=== PATIENT | male | born 1970 | race Caucasian/White ===

== ENCOUNTER 2016-09-19 15:26 | Emergency (ER) | payer OTHER ==
[~2016-09-19 15:26] MED LIST: ACETAMINOPHEN PO; BACTROBAN22 GM TP; CIPRO; CIPRO PO; DICLOFENAC PO; FLEXERIL PO; FLEXERIL10 M1 PO; FLEXERIL10 MG PO; HYDROCHLOROTHIA25 MG PO; HYDROCODON-ACE1 EAC7 PO; KCL PO; KEFLEX500 M2 PO; KLONOPIN1 MG PO; LEVAQUIN PO; LIDODERM30 EA TOP; LISINOPRIL PO; LISINOPRIL1 GM; LORTAB 10-5001 EACH PO; LORTAB 5-325 M1 EACH PO; LORTAB 5/500 TA1 TA1 PO; NAPROSYN-EC500 M1 PO; NORCO 10/3251 TAB PO; NORCO1 TAB 10/3; NORVASC PO; ROBAXIN; ROBAXIN500 MG PO; SYMBICORT INH; TYLENOL #3 PO; VOLTAREN75 MG PO; ZOLOFT PO; ZOLOFT100 MG PO
[2016-09-19] MEDS ORDERED: PROTONIX PO (15:37)
[2016-09-19] MEDS ORDERED: CATAPRES0.1 MG PO (15:37)
[2016-09-20] MEDS ORDERED: SEROQUEL100 MG PO (07:16)
[2016-09-20] MEDS ORDERED: INDERAL XL80 MG PO (07:17)
[2016-09-20] MEDS ORDERED: FERRO-TIME325 MG PO (07:17)
[2016-09-20] MEDS ORDERED: HYDROCODON-ACE1 EAC7 PO (17:39)
== END 2016-09-19 18:16 | disposition left against medical advice (07) ==
LOC: SED 15:26
DX: Z53.21 Procedure and treatment not carried out due to patient leaving prior to being seen by health care provider (principal)

== ENCOUNTER 2016-09-19 17:56 | Observation (INO) | payer OTHER ==
--- NOTE | ~2016-09-19 | OR ---
Unit #: [id number] #: [id number] Patient: DINH CHANEY [id number] [address] [place], [place] [address] [id number] Ronaldo MR#: [id number] NAME: DINH CHANEY. ROOM: 228 Date of Procedure: 09/20/2016 Admission Date: 09/19/2016 Surgeon: Andrew Salas M.D. : 1970 Attending Physician: Shadi Garzon M.D. Primary Care Physician: Emmett Smith M.D. OPERATIVE REPORT PREOPERATIVE DIAGNOSES Right ureteral and renal calculi. POSTOPERATIVE DIAGNOSES Right ureteral and renal calculi. PROCEDURES PERFORMED Right ureteroscopy, laser lithotripsy (no stent). ANESTHESIA General with local supplementation. INDICATIONS FOR PROCEDURE This 46-year-old man with a long stone history, has two 7 mm stones obstructing the proximal right ureter. He has multiple right intrarenal stones as well as left intrarenal stones. DESCRIPTION OF PROCEDURE The patient was given preoperative antibiotics and satisfactory general anesthesia. In the dorsal lithotomy position, routine prep and drape were performed. The 21-Paraguayan rigid cystoscope was introduced with a 30-degree lens and video noting a normal anterior urethra and mild bilobar BPH. The bladder was healthy when examined. The right ureteral orifice was larger than normal indicative of his stone history. I placed a Sensor guidewire, easily past the obstructing stones. Then a rigid ureteroscope easily alongside the guidewire without any active dilation. The stones were hard and very irregular. I used a 365 nanometer laser fiber at settings of 10 and 1.0 to break the 2 stones in the ureter. There was, I believe, a third stone that had come down also and this was treated. After clearing the ureter with the basket and irrigation, I then placed a second guidewire and advanced a flexible ureteroscope up into the kidney and examined all calices. I treated significant upper pole stone burden with the same laser fiber at settings of 10 and 0.8. I treated the 2 other calyceal stones until they became disattached. In the lower pole, there was only a cluster of debris too small to basket and small enough to pass. Leaving no significant fragments and pulling back slowly, I determined there was no need for ureteral stent, so all devices were removed. A Uro-jet was applied. The patient's stones are submitted for chemical analysis. The patient will be discharged postvoid if alert and comfortable. Follow up in 1 month with a renal ultrasound and KUB. Unit #: [id number] #: [id number] Patient: DINH CHANEY Dictated by... Junie Lei/renetta TD: 09/21/2016 06:30 JOB #: [id number] OPERATIVE REPORT Page 1 of 1 X Andrew Salas MD X PROCEDURE OPERATIVE NOTE
--- NOTE | ~2016-09-19 | HP ---
Unit #: [id number] #: [id number] Patient: DINH CHANEY [id number] [address] [address] [id number] I MR#: [id number] NAME: DINH CHANEY. ROOM: 228 Age: Sex: M Admission Date: 09/19/2016 : 1970 Attending Physician: Shadi Garzon M.D. Primary Care Physician: Emmett Smith M.D. HISTORY AND PHYSICAL CHIEF COMPLAINT Right flank pain. HISTORY OF PRESENT ILLNESS This 46-year-old man has a long history of multiple stones and presented to the emergency department last night with right flank pain. He was diagnosed with two 7 mm stones obstructing the right upper ureter with hydronephrosis. There are numerous bilateral renal stones also. His pain persists despite medication, and he requests definitive therapy. He is familiar with the risks and complications of ureteroscopy. He ordinarily has no voiding difficulties. He has had intermittent gross hematuria associated with the stones. He has no history of urinary infection. PAST MEDICAL HISTORY 1. Chronic pain. 2. Hypertension. 3. Depression. PAST SURGICAL HISTORY 1. Right knee x3. 2. Hiatal hernia. 3. Kidney stones with ureteroscopy and ESWL. HOME MEDICATIONS 1. Zoloft. 2. Norvasc. 3. [place]. 4. Methocarbamol. 5. Symbicort. 6. Potassium. 7. Hydrochlorothiazide. 8. Catapres. 9. Protonix. ALLERGIES None known. FAMILY HISTORY Negative for prostate cancer. SOCIAL HISTORY Unit #: [id number] #: [id number] Patient: DINH CHANEY Active smoker. REVIEW OF SYSTEMS Includes the above. Pain controlled through Pain Management. PHYSICAL EXAMINATION GENERAL: Patient is obviously in pain in the holding area but alert and oriented. VITAL SIGNS: Afebrile with stable vital signs. Temperature 97.5 degrees, pulse 55, blood pressure 109/71, and respirations 16. Height 5 feet 10 inches, weight 190 pounds. HEENT: Unremarkable. LUNGS: Clear. CARDIAC: Rate and rhythm regular. ABDOMEN: Normal build, soft, tender right side, right flank, and right groin. GENITALIA: Phallus normal circumcised. Normal meatus. Testes and epididymis normal descended. Digital deferred. EXTREMITIES: No edema. NEUROLOGIC: Intact. DIAGNOSTIC STUDIES LABORATORY: Urinalysis with 3+ blood, no nitrites, and 1+ leukocyte esterase, with enumerable RBCs, 5-10 WBCs, and 1+ bacteria. BUN 12 and creatinine 0.8. Liver function tests are normal. WBC 7.6 and hemoglobin 14.6. IMAGING: CT scan as noted above. IMPRESSION Obstructing proximal right ureteral stones and intrarenal calculi. PLAN Will proceed with right ureteroscopy, laser lithotripsy, and stent placement. Dictated by Andrew Salas M.D. VINCENZO/ancelmo TD: 09/20/2016 19:41 JOB #: [id number] HISTORY AND PHYSICAL Page 1 of 1 X Andrew Salas MD X HISTORY AND PHYSICAL
--- NOTE | ~2016-09-19 | CT4 ---
[facility] A Service of [facility] RADIOLOGY TEXT RESULTS PATIENT: DINH CHANEY LOCATION: [facility] 228-01 : [birth year] UNIT #: [id number] AGE: [address]: Shadi Garzon MD SEX: M ORDER DR: [id number] [facility] [address] [facility] [place], [place] [address] [id number] I MR#: [id number] Acc #: [id number] NAME: DINH CHANEY. : 1970 SEX: M STUDY DATE/TIME: 09/19/2016 20:27 UNIT: [id number] PCU ROOM: 301 STUDY DESCRIPTION: CT Abd and Pelv Wo Cont Attending Physician: Shadi Garzon M.D. Ordering Physician: Blayne Catherine D.O. Primary Care Physician: Emmett Smith M.D. MEDICAL IMAGING REPORT This report is preliminary unless electronic signature is present EXAM CT abdomen and pelvis without contrast HISTORY Right-sided flank pain radiating into scrotum. History of kidney stones, blood in urine x2 days. COMPARISON CT abdomen and pelvis 08/17/[address] exam was performed with one or more of the following radiation dose reduction techniques: automatic exposure control, adjustment of mA and/or kV according to patient size, and iterative reconstruction. FINDINGS Axial images performed through the abdomen and pelvis without contrast. Multiplanar reconstructed images reviewed a workstation. ABDOMEN: Lung bases remarkable for old right-sided rib fracture with incomplete union. Liver, spleen, gallbladder, pancreas and adrenal glands unremarkable. There is a large exophytic cyst left kidney. Both kidneys demonstrate too numerous to count bilateral intrarenal stones. There is moderate right-sided hydronephrosis and hydroureter with multiple stones within the right ureter. There are estimated to be at least five stones within the right ureter, most of these measuring about 6 mm and the largest measuring close to 7 mm. These extend to about the mid ureteral level just above the pelvic brim. Visualized GI tract unremarkable. PELVIS: Bladder and prostate appear normal with the exception of some small prostatic calcifications. Osseous structures and soft tissues [facility] A Service of [facility] RADIOLOGY TEXT RESULTS PATIENT: DINH CHANEY LOCATION: [facility] 228-01 : [birth year] UNIT #: [id number] AGE: [address]: Shadi Garzon MD SEX: M ORDER DR: unremarkable. IMPRESSION 1. Moderate right-sided hydronephrosis and hydroureter with multiple right-sided ureteral stones numbering at least five and the largest measuring up to 7 mm. These extend all of the way down to the level of the pelvic brim and findings are compatible with acute obstruction. 2. Too numerous to count intrarenal stones bilaterally, right greater than left. Dictated by... Sherri Pina M.D. THIS IS AN ELECTRONICALLY VERIFIED REPORT Sherri Pina M.D. at 09/20/2016 2:49 PM ELISA/corey TD: 09/20/2016 03:02 JOB #: [id number] MEDICAL IMAGING REPORT Page 1 of 1 COPY
[~2016-09-19 17:56] MED LIST changes: +CATAPRES0.1 MG PO; +PROTONIX PO
[2016-09-19 20:16] LABS: BASOPHIL% 0.5 % (0-2.5); EOSINOPHIL# 0.2 X10e3 (0-0.7); HEMATOCRIT 42.6 % (38.0-50.0); HEMOGLOBIN 14.6 gm/dL (13.0-16.0); LYMPHOCYTE% 25.9 % (17.0-45.0); MEAN CELL VOLUME 91.7 FL (83-96); MEAN CORPUSCULAR HEMOGLOBIN 31.5 PG (28-34); MEAN CORPUSCULAR HGB CONC 34.3 g/dL (30-36); MEAN PLATELET VOLUME 9.8 FL (6.5-11.5); MONOCYTE# 0.5 X10e3 (0-1.0); MONOCYTE% 6.7 % (3.0-12.0); NEUTROPHIL# 4.9 X10e3 (1.5-7.1); NEUTROPHIL% 64.9 % (40-75); PLATELET COUNT 180 X10e3 (140-420); RED BLOOD COUNT 4.65 X10e (3.90-5.60); RED CELL DISTRIBUTION WIDTH 13.1 % (11.0-15.5); WHITE BLOOD COUNT 7.6 X10e3 (4.0-10.5)
[2016-09-19 20:17] LABS: DIFF IND NO
[2016-09-19 20:31] LABS: URINE SOURCE CLEAN CATCH
[2016-09-19 20:39] LABS: ALBUMIN SERUM 3.6 g/dL (3.5-5.0); ALKALINE PHOSPHATASE 52 U/L (32-92); ALT (SGPT) 10 U/L (10-40); AST (SGOT) 13 U/L (10-42); BILIRUBIN, DIRECT <0.1 mg/dL (0.0-0.2); BILIRUBIN,INDIRECT 0.3 mg/dL (0.0-0.9); BILIRUBIN,TOTAL 0.4 mg/dL (0.2-2.0); BLOOD UREA NITROGEN 12 mg/dL (9-23); CALCIUM SERUM 8.7 mg/dL (8.4-10.2); CARBON DIOXIDE 23 mmol/L (22-31); CHLORIDE 103 mmol/L (100-111); CREATININE SERUM 0.8 mg/dL (0.6-1.4); GLOM FILT RATE Estimated 107.2 mL/min (>60); GLUCOSE FASTING 94 mg/dL (70-110); LIPASE 17 U/L (22-51); POTASSIUM 3.9 mmol/L (3.5-5.1); PROTEIN TOTAL SERUM 6.4 g/dL (6.0-8.3); SODIUM 135 mmol/L (135-145)
[2016-09-19 20:41] LABS: URINE APPEARANCE CLOUDY; URINE BILIRUBIN NEG (NEG); URINE BLOOD 3+ (NEG); URINE COLOR YELLOW; URINE GLUCOSE NEG (NEG); URINE KETONE NEG (NEG); URINE LEUKOCYTE ESTERASE 1+ (NEG); URINE NITRATE NEG (NEG); URINE PH 5.5 (5-8); URINE PROTEIN TRACE (NEG); URINE SPECIFIC GRAVITY 1.019 (1.003-1.035)
[2016-09-19 20:44] LABS: CULTURE INDICATED? YES; URBCS1 AUWI INNUM /[HPF] (0-2); URINE BACTERIA AUWI 2+ (NEGATIVE); URINE SQUAMOUS EPITHELIAL CELL NONE SEEN /[HPF]
[2016-09-20] MEDS ORDERED: SEROQUEL100 MG PO (07:16)
[2016-09-20] MEDS ORDERED: INDERAL XL80 MG PO (07:17)
[2016-09-20] MEDS ORDERED: FERRO-TIME325 MG PO (07:17)
[2016-09-20] MEDS ORDERED: HYDROCODON-ACE1 EAC7 PO (17:39)
== END 2016-09-20 17:57 | disposition home or self-care (01) ==
LOC: CED 17:56 → C2A 21:35 → CEDOF 21:35 → CED 21:52 → CEDOF 21:52 → C3A PCU 23:17 → C2A 09-20 07:44 → C3A PCU 09-20 07:44 → C2A 09-20 17:57
PROVIDERS: Emergency Medicine; Urology
DX: N13.2 Hydronephrosis with renal and ureteral calculous obstruction (principal); I10 Essential (primary) hypertension; J44.9 Chronic obstructive pulmonary disease, unspecified; G47.30 Sleep apnea, unspecified; F17.200 Nicotine dependence, unspecified, uncomplicated
CPT/HCPCS: 36415; 74176; 80048; 80076; 81003; 82365; 83690; 85025; 87086; 88300; 96361; 96374; 96375; 96376; 99285; C1758; G0378; J0690; J0696; J1885; J2250; J2270; J2405; J3010

== ENCOUNTER → 2016-10-23 | Outpatient (CLI) | payer OTHER ==
[~2016-10-23] MED LIST changes: +FERRO-TIME325 MG PO; +INDERAL XL80 MG PO; +SEROQUEL100 MG PO
--- NOTE | ~2016-10-23 | US77 ---
[facility] A Service of [facility] RADIOLOGY TEXT RESULTS PATIENT: DINH CHANEY LOCATION: [facility] : 70 UNIT #: [id number] AGE: [address]: Andrew Salas MD SEX: M ORDER DR: [id number] [facility] [address] [facility]. [place], [place] [address] [id number] O MR#: [id number] Acc #: [id number] NAME: DINH CHANEY. : 1970 SEX: M STUDY DATE/TIME: 10/23/2016 11:58 UNIT: CGUS ROOM: STUDY DESCRIPTION: US Kidney Bilateral Complete Attending Physician: Andrew Salas M.D. Referring Physician: Andrew Salas M.D. Ordering Physician: Andrew Salas M.D. Primary Care Physician: Maik Pena Aprn MEDICAL IMAGING REPORT This report is preliminary unless electronic signature is present EXAM Ultrasound bilateral, 10/23/2016 INDICATIONS 46-year-old male with history of renal stones. Apparent lithotripsy a month ago. Pain in the lower back, feels like he may be passing a stone. Hypertension. TECHNIQUE Sonographic imaging of the kidneys was performed bilaterally. COMPARISON STUDIES Correlation is made with CT 09/19/2016. FINDINGS The right kidney measures 11.3 cm long axis and the left 14 cm long axis. No hydronephrosis on either side. The patient's tiny stones, better demonstrated on the prior CT, are difficult to ascertain with ultrasound. However, there is no evidence of hydronephrosis of either kidney. Incidental left renal cyst measures up to 6.8 cm. The bladder is unremarkable. IMPRESSION 1. No hydronephrosis of either kidney. 2. Tiny non-obstructing stones bilaterally, better demonstrated on recent CT. 3. Dominant left renal cyst. 4. Bladder unremarkable. Dictated by... Tanner Kendall M.D. [facility] A Service [facility] RADIOLOGY TEXT RESULTS PATIENT: DINH CHANEY LOCATION: [facility] : 70 UNIT #: [id number] AGE: [address]: Andrew Salas MD SEX: M ORDER DR: THIS IS AN ELECTRONICALLY VERIFIED REPORT Tanner Kendall M.D. at 10/24/2016 7:09 AM NIKA/matias TD: 10/23/2016 21:05 JOB #: [id number] MEDICAL IMAGING REPORT Page 1 of 1 COPY
--- NOTE | ~2016-10-23 | CR7 ---
[facility] A Service of [facility] RADIOLOGY TEXT RESULTS PATIENT: DINH CHANEY LOCATION: [facility] : 70 UNIT #: [id number] AGE: [address]: Andrew Salas MD SEX: M ORDER DR: [id number] [facility] [address] [place], [place] [address] [id number] O MR#: [id number] Acc #: [id number] NAME: DINH CHANEY. : 1970 SEX: M STUDY DATE/TIME: 10/23/2016 11:40 UNIT: CGUS ROOM: STUDY DESCRIPTION: CR Abdomen Single AP View Attending Physician: Andrew Salas M.D. Referring Physician: Andrew Salas M.D. Ordering Physician: Andrew Salas M.D. Primary Care Physician: Maik Pena Aprn MEDICAL IMAGING REPORT This report is preliminary unless electronic signature is present EXAM Frontal abdomen 10/23/2016 INDICATIONS 46-year-old male with history of a kidney stone. Symptoms began a month ago. History of skin cancer. History of lithotripsy on the right a month ago. TECHNIQUE Frontal abdomen was performed. COMPARISON STUDIES CT 09/19/2016. FINDINGS There are bilateral renal stones. The largest stone on the left is in the noe-us-csxox pole measuring 7 mm. The largest stone or conglomeration of stones in the right kidney is in the ylf-lo-iwqes pole, also measuring up to 7 mm. There is a nonspecific calcification in the right mirta-pelvis that is favored to be vascular in nature, rather than a distal ureteral stone. Mild degenerative change in the lower lumbar spine. IMPRESSION 1. There are bilateral renal stones. These measure up to 7 mm, as described. 2. Probable vascular calcification in the right mirta-pelvis. Dictated by... Tanner Kendall M.D. THIS IS AN ELECTRONICALLY VERIFIED REPORT [facility] A Service of [facility] RADIOLOGY TEXT RESULTS PATIENT: DINH CHANEY LOCATION: [facility] : 70 UNIT #: [id number] AGE: [address]: Andrew Salas MD SEX: M ORDER DR: Tanner Kendall M.D. at 10/24/2016 7:10 AM NIKA/matias TD: 10/24/2016 03:05 JOB #: [id number] MEDICAL IMAGING REPORT Page 1 of 1 COPY
== END | disposition home or self-care (01) ==
LOC: CGUS 11:28
DX: N20.0 Calculus of kidney (principal); N28.1 Cyst of kidney, acquired
CPT/HCPCS: 74000; 76770